=== PATIENT | male | born 1995 | race Caucasian/White ===

== ENCOUNTER 2018-03-15 10:05 | Observation (INO) ==
[2018-03-15] MEDS ORDERED: 0.9 % Sodium Chloride 1,000 ML IVC ONE (11:27)
[2018-03-15] MEDS ORDERED: Piperacillin/Tazobactam 3.375 GM in 0.9 % Sodium Chloride Mini Bag 100 ML IVPB ONE (11:27)
[2018-03-15] MEDS ORDERED: Isovue-370 500 ML INFUS..BTL IV ONE (11:27)
--- NOTE | 2018-03-15 11:35 | Emergency Department Note ---
Disposition Clinical Impression: Abscess of finger Qualifiers: Laterality: right Qualified Code(s): L02.511 - Cutaneous abscess of right hand Disposition: Admitted As Inpatient Condition: Good Referrals: Sergo Sanz MD [Primary Care Provider] - Forms: ED Satisfaction Letter Time of Disposition: 13:39 General Adult HPI - General Chief complaint: ED Skin/Abscess/Foreign Body Stated complaint: Finger injury right hand Time Seen by Provider: 03/15/18 10:45 Source: patient Limitations: no limitations Nursing Notes Reviewed: Yes Vital Signs Reviewed: Yes - History of Present Illness HPI Narrative: 22 year old male presents to the ED with complaints of right hand middle finger injury with possible honey locust thorn and 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 PAtient states that he has had honey locust thorn injureies inthe past but never this bad. Rick staets taht a few days ago he noticed that there was swelling and when you push on it pus would drain out. He tried to take care of it on his own but it only got worse. Patient denies fevers, nausea, vomitting and is not uptodate on his tetanus. Patient states that he is concnered that there is a torn in his finger, but does not recollect a thorn entering his finger. Pain Scale: 9 - Related Data Home Medications Medication Instructions Recorded Confirmed No Known Home Drugs 03/15/18 03/15/18 Allergies Allergy/AdvReac Type Severity Reaction Status Date / Time No Known Allergies Allergy Verified 03/15/18 13:43 Constitutional: Denies: fever, chills, weakness, weight change Eyes: Denies: eye pain, eye discharge, vision change ENT ED: Denies: ear pain, throat pain, dental pain, hearing loss, epistaxis, congestion, dysphagia Cardiovascular: Denies: chest pain, palpitations, dyspnea on exertion, edema, syncope Respiratory: Denies: cough, dyspnea, wheezes, hemoptysis, stridor Gastrointestinal: Denies: abdominal pain, nausea, vomiting, diarrhea, constipation, hematemesis, melena, hematochezia Genitourinary: Denies: urgency, dysuria, frequency, hematuria Musculoskeletal: Reports: other (finger abscess). Denies: back pain, neck pain , arthralgia, myalgia Integumentary: Denies: rash, abrasion, lesions Neurological: Denies: headache, weakness, numbness, paresthesias, confusion, abnormal gait, vertigo Psychiatric: Denies: anxiety, depression, suicidal thoughts, homicidal thoughts , auditory hallucinations, visual hallucinations Endocrine: Denies: fatigue Hematological/Lymphatic: Denies: easy bleeding, easy bruising Allergic/Immunologic: Denies: facial swelling, urticaria Past Medical History - Past Medical History Medical history: Reports: no medical history Psychiatric history: Reports: no psych history - Social History Smoking Status: Current some day smoker Smokeless Tobacco Status: Yes Alcohol use: Reports: occasionally Drug use: Reports: none Physical Exam - General Limitations: no limitations General appearance: alert - Head Head exam: atraumatic, normocephalic, normal inspection - Eye Eye exam: Present: normal appearance, PERRL, EOMI - Expanded Eye Exam Pupils: Bilateral: reactive - ENT ENT exam: normal exam, normal oropharynx, mucous membranes moist - Expanded ENT Exam External ear exam: Present: normal external inspection Mouth exam: Present: normal external inspection Teeth exam: Present: normal inspection Throat exam: Present: normal inspection - Neck Neck exam: Present: normal inspection, full ROM, trachea midline - Chest Chest inspection: Present: normal inspection, symmetric chest wall rise - Respiratory Respiratory exam: Present: normal lung sounds bilaterally - Cardiovascular Cardiovascular exam: Present: regular rate, normal rhythm, normal heart sounds - Abdominal Exam Abdominal exam: Present: soft, Non-Tender. Absent: tenderness, distention, guarding, rebound, rigidity - Extremities Exam Extremities exam: Present: normal inspection, full ROM. Absent: tenderness, pedal edema - Expanded Upper Extremity Exam Shoulder exam: Present: normal inspection, full ROM Arm exam: Present: normal inspection, full ROM Elbow exam: Present: normal inspection, full ROM Forearm/Wrist exam: Present: normal inspection, full ROM Hand exam: Present: normal inspection, full ROM Hand L/R back image: 1 - circumferential involvement of the joint, kannavals sign presents with range of motion, active drainage on palpation. concernign for septic joint Vascular exam: Normal: capillary refill, radial pulse - Expanded Lower Extremity Exam Hip/Pelvis exam: Present: normal inspection, full ROM Upper leg exam: Present: normal inspection, full ROM Knee exam: Present: normal inspection, full ROM Lower leg exam: Present: normal inspection, full ROM Ankle exam: Present: normal inspection, full ROM Foot/toe exam: Present: normal inspection, full ROM Neurovascular/Tendon exam: Absent: motor deficit, sensory deficit, tendon deficit - Back Exam Back exam: Present: normal inspection, full ROM. Absent: tenderness - Neurological Exam Neurological exam: Present: alert, oriented X3 - Expanded Neurological Exam Patient oriented to: Present: person, place, time Coma Scale Eye Opening: Spontaneous Coma Scale Motor Response: Obeys Commands Coma Scale Verbal Response: Oriented Coma Scale Total: 15 - Psychiatric Psychiatric exam: Present: normal affect, normal mood - Skin Skin exam: Present: warm, dry, intact, normal color Course Course Narrative: concern is for septic joint and/or deep finger abscess. Patient will likely need a hand surgeon evaluation. WEw ill start IVF and ABX and CT scan the finger and then consult the hand surgeon at [place] or have to transfer to [place]. - Reevaluation(s) Reevaluation #1: updated patient on results and he is agreeable to plan. Time: 13:39 - Consultations Consultation #1: discussed case with Dr. Carty who will take patient to the OR. Admit to medicine. Time: 13:39 Consultation #2: discussed case with Dr. Reynoso and he accepts patient for admission Time: 13:48 Vital Signs Temperature 97.8 F 03/15/18 10:07 Pulse Rate 87 03/15/18 10:07 Respiratory Rate 16 03/15/18 10:07 Blood Pressure 119/77 03/15/18 10:07 O2 Sat by Pulse Oximetry 100 03/15/18 10:07 Temperature 97.8 F 03/15/18 10:18 Pulse Rate 81 03/15/18 12:59 Respiratory Rate 18 03/15/18 12:59 Blood Pressure 124/79 03/15/18 12:59 O2 Sat by Pulse Oximetry 78 03/15/18 12:59 Oxygen Delivery Oxygen Delivery Room Air Medical Decision Making - Lab Data Result diagrams: 03/15/18 11:37 03/15/18 11:37 Lab Results 03/15/18 03/15/18 03/15/18 Range/Units 11:37 11:37 11:37 WBC 12.7 H (4.3-11.1) K/mcL RBC 4.74 (4.19-5.50) M/mcL Hgb 14.6 (12.9-16.9) g/dL Hct 42.2 (37.5-50.1) % MCV 89.0 (83.0-100.0) fL MCH 30.8 (28.0-33.3) pg MCHC 34.6 (31.6-35.5) g/dL RDW 11.8 (11.5-14.5) % Plt Count 210 (140-400) K/mcL MPV 9.7 (9.4-12.4) fL Immature Gran % 0.4 (0-4) % Seg Neutrophils % 76.9 % Lymphocytes % 14.8 % Monocytes % 7.3 % Eosinophils % 0.2 % Basophils % 0.4 % Neutrophils # 9.8 H (1.6-8.9) K/mcL Lymphocytes # 1.9 (0.6-4.6) K/mcL Monocytes # 0.9 (0.0-1.3) K/mcL Eosinophils # 0.0 (0.0-0.6) K/mcL Basophils # 0.1 (0.0-0.2) K/mcL ESR 8 (0-10) mm/hr Sodium 138 (136-145) mEq/L Potassium 4.3 (3.5-5.1) mEq/L Chloride 106 (98-107) mEq/L Carbon Dioxide 28 (23-29) mEq/L BUN 14 (6-20) mg/dL Creatinine 0.94 (0.70-1.30) mg/dL Est GFR ( Amer) > 60 (> 60) Est GFR (Non-Af Amer) > 60 (> 60) BUN/Creatinine Ratio 15 (6-26) Glucose 106 H (70-105) mg/dL Calculated Osmolality 287 (280-300) Lactic Acid (0.5-2.2) mmol/L Calcium 9.5 (8.6-10.3) mg/dL Total Bilirubin 0.6 (0.3-1.0) mg/dL AST 16 (13-39) Units/L ALT 11 (7-52) Units/L Alkaline Phosphatase 70 (34-104) Units/L C-Reactive Protein 23 H (Less than 10) mg/L Serum Total Protein 7.2 (6.4-8.9) g/dL Albumin 4.6 (3.5-5.7) g/dL Globulin 2.6 (2.4-3.5) g/dL Albumin/Globulin Ratio 1.8 (1.1-2.2) 03/15/18 Range/Units 11:37 WBC (4.3-11.1) K/mcL RBC (4.19-5.50) M/mcL Hgb (12.9-16.9) g/dL Hct (37.5-50.1) % MCV (83.0-100.0) fL MCH (28.0-33.3) pg MCHC (31.6-35.5) g/dL RDW (11.5-14.5) % Plt Count (140-400) K/mcL MPV (9.4-12.4) fL Immature Gran % (0-4) % Seg Neutrophils % % Lymphocytes % % Monocytes % % Eosinophils % % Basophils % % Neutrophils # (1.6-8.9) K/mcL Lymphocytes # (0.6-4.6) K/mcL Monocytes # (0.0-1.3) K/mcL Eosinophils # (0.0-0.6) K/mcL Basophils # (0.0-0.2) K/mcL ESR (0-10) mm/hr Sodium (136-145) mEq/L Potassium (3.5-5.1) mEq/L Chloride (98-107) mEq/L Carbon Dioxide (23-29) mEq/L BUN (6-20) mg/dL Creatinine (0.70-1.30) mg/dL Est GFR ( Amer) (> 60) Est GFR (Non-Af Amer) (> 60) BUN/Creatinine Ratio (6-26) Glucose (70-105) mg/dL Calculated Osmolality (280-300) Lactic Acid 0.8 (0.5-2.2) mmol/L Calcium (8.6-10.3) mg/dL Total Bilirubin (0.3-1.0) mg/dL AST (13-39) Units/L ALT (7-52) Units/L Alkaline Phosphatase (34-104) Units/L C-Reactive Protein (Less than 10) mg/L Serum Total Protein (6.4-8.9) g/dL Albumin (3.5-5.7) g/dL Globulin (2.4-3.5) g/dL Albumin/Globulin Ratio (1.1-2.2)
[2018-03-15] MEDS ORDERED: *HR* FentaNYL (PF) 100 MCG/2 ML VIAL IVP ONE ×2 (11:48→13:22)
[2018-03-15 11:57] LABS: Basophils # 0.1 K/mcL (0.0-0.2); Basophils % 0.4 %; Eosinophils % 0.2 %; Hematocrit 42.2 % (37.5-50.1); Hemoglobin 14.6 g/dL (12.9-16.9); Immature Granulocytes % 0.4 % (0-4); Lymphocytes # 1.9 K/mcL (0.6-4.6); Lymphocytes % 14.8 %; Mean Corpuscular HGB Conc 34.6 g/dL (31.6-35.5); Mean Corpuscular Hemoglobin 30.8 pg (28.0-33.3); Mean Platelet Volume 9.7 fL (9.4-12.4); Monocytes # 0.9 K/mcL (0.0-1.3); Monocytes % 7.3 %; Neutrophils # 9.8 K/mcL (1.6-8.9); Platelet Count 210 K/mcL (140-400); Red Blood Count 4.74 M/mcL (4.19-5.50); Red Cell Distribution Width 11.8 % (11.5-14.5); Segmented Neutrophils % 76.9 %
[2018-03-15 12:17] LABS: Alanine Aminotransferase 11 Units/L (7-52); Albumin 4.6 g/dL (3.5-5.7); Albumin/Globulin Ratio 1.8 (1.1-2.2); Alkaline Phosphatase 70 Units/L (34-104); Aspartate Amino Transferase 16 Units/L (13-39); BUN/Creatinine Ratio 15 (6-26); Bilirubin,Total 0.6 mg/dL (0.3-1.0); Blood Urea Nitrogen 14 mg/dL (6-20); C-Reactive Protein 23 mg/L (Less than 10); Calcium 9.5 mg/dL (8.6-10.3); Carbon Dioxide 28 mEq/L (23-29); Chloride 106 mEq/L (98-107); Globulin 2.6 g/dL (2.4-3.5); Glucose 106 mg/dL (70-105); Osmolality,Calculated 287 (280-300); Potassium 4.3 mEq/L (3.5-5.1); Sodium 138 mEq/L (136-145); Total Protein 7.2 g/dL (6.4-8.9); eGFR For African Americans > 60 (> 60); eGFR For Non-African Americans > 60 (> 60)
--- NOTE | 2018-03-15 15:11 | Anesthesia Evaluation PreOp ---
Date of Encounter: 03/15/18 Time of Encounter: 15:10 - Past History Planned Operation: I and D Rt 3rd Finger Cardiac History: Denies any Significant Hx Pulmonary History: Smoker [employer] EXTENSION SPECIALIST History: Denies Any Significant HX Other Medical History: Denies Any Significant HX Anesthesia History: No Prior Anesthetic Complications Alcohol Use: occasionally Drug use: none Medications and Allergies No Known Home Drugs 03/15/18 [History] 3 Allergy/AdvReac Type Severity Reaction Status Date / Time No Known Allergies Allergy Verified 03/15/18 13:43 - Meds/Allergy Pre-op Review Medications Reviewed: Yes Allergies Reviewed: Yes Beta Blockers on Current Med List: No Anesthesia Results - Labs 03/15/18 11:37 03/15/18 11:37 Anesthesia Exam O2 Sat Height 1.85 m Height 1.85 m Weight 58.423 kg Weight 58.423 kg O2 Sat by Pulse Oximetry 99 O2 Sat by Pulse Oximetry 98 O2 Sat by Pulse Oximetry 100 O2 Sat by Pulse Oximetry 100 Vital Signs Temp Pulse Resp BP Pulse Ox 97.8 F 87 16 119/77 100 03/15/18 10:07 03/15/18 10:07 03/15/18 10:07 03/15/18 10:07 03/15/18 10:07 Height: 6'1 Weight: 118 lbs Pain Scale: 5 - HEENT Pupil (Motor): Pupils equal, EOMI Mallampati: II Teeth: Normal Oral Opening: Greater than 3 - SOIL [employer]ILITY EXTENSION SPECIALIST LOC: Oriented SOIL [employer] EXTENSION SPECIALIST Motor: Normal RUE, Normal LUE, Normal RLE, Normal LLE, Normal Face [employer] EXTENSION SPECIALIST Sensory: Normal: RUE, LUE, RLE, LLE, Face - Cardiac Rhythm: Regular Murmur: None JVD: No Carotid Bruit: No - Pulmonary Breath Sounds: bilateral Clear Respiratory Effort: Symmetrical Anesthesia Assess/Plan ASA Score: 2 Modified Lindsay Scale for Level of Consciousness: Cooperative, oriented, and tranquil Anesthetic Plan: General Monitoring Plan: Standard Monitors Recovery Plan: PACU (Discussed GA, agrees to proceed)
[2018-03-15] MEDS ORDERED: *HR* Midazolam HCl 2 MG/2 ML VIAL ONE (15:22)
[2018-03-15] MEDS ORDERED: *HR* Propofol 200 MG/20 ML VIAL IVP ONE ×2 (15:22→16:38)
[2018-03-15] MEDS ORDERED: *HR* FentaNYL (PF) 100 MCG/2 ML VIAL ONE (15:22)
[2018-03-15] MEDS ORDERED: Lidocaine -MPF 2% 2 ML VIAL ONE (15:25)
[2018-03-15] MEDS ORDERED: *HR* Morphine 2 MG/ML SYRINGE IVP ONE ×2 (15:26→15:45)
[2018-03-15] MEDS ORDERED: Albuterol 2.5 MG/3 ML NEBULIZER IH ONE (15:41)
[2018-03-15] MEDS ORDERED: Famotidine 20 MG/2 ML VIAL IVP ONE (15:42)
[2018-03-15] MEDS ORDERED: Acetaminophen IV 1,000 MG/100 ML INFUS..BTL IVPB ONE (15:42)
[2018-03-15] MEDS ORDERED: Acetaminophen IV 1,000 MG/100 ML INFUS..BTL ONE (15:47)
[2018-03-15] MEDS ORDERED: Famotidine 20 MG/2 ML VIAL ONE (15:48)
[2018-03-15] MEDS ORDERED: *HR* FentaNYL (PF) 100 MCG/2 ML VIAL IVP PRN (15:58)
[2018-03-15] MEDS ORDERED: *HR* OxyCODONE Immed Rel 5 MG TABLET PO PRN (15:58)
[2018-03-15] MEDS ORDERED: *HR* Promethazine 25 MG/ML VIAL IVP PRN (15:58)
[2018-03-15] MEDS ORDERED: Bupivacaine/EPI 1:200k 0.5%PF 10 ML VIAL ONE (15:59)
[2018-03-15] MEDS ORDERED: Ondansetron 4 MG/2 ML VIAL ONE (16:00)
[2018-03-15] MEDS ORDERED: Dexamethasone 4 MG/ML VIAL ONE (16:00)
--- NOTE | 2018-03-15 16:02 | Orthopedic Consult Note ---
Date of Encounter: 03/15/18 Time of Encounter: 15:59 Assessment and Plan (1) Abscess of finger Current Visit: Yes Status: Acute I did discuss the diagnosis in detail the patient. His right long finger abscess. My recommendation was for incision, drainage, irrigation, debridement in order to clear the infection along with antibiotics per the hospitalist. The risks discussed included but were not limited to stiffness, bleeding, infection, blood clots, damage to neurovascular structures, tendons, ligaments, and bone. Also discussed was the risk of continued symptoms and possible need for further procedures. I did discuss the anesthesia risks including stroke, heart attack, and . I did discuss the reasonable, foreseeable postoperative course with the patient. He did wish to proceed and consent was obtained. Qualifiers: Laterality: right Qualified Code(s): L02.511 - Cutaneous abscess of right hand History of Present Illness HPI: Mr. Meneses is a 22 year old male who is currently admitted to the hospitalist due to a right long finger infection. He is brushing across a honeylocust tree and he thinks he may have gotten a thorn lodged into the long finger. Due to pain, redness, swelling he presented to the emergency department where he is admitted and I was consulted to assist in evaluation and management of the patient. He complains of this is an isolated occurrence and has pain localized along finger. No numbness, tingling, or any other associated signs or symptoms. Pain is worse with use and movement and better with rest. No other modifying factors. He has not had any treatment other than vancomycin and Zosyn from the emergency department. Past Med Surg Social Fam HX - Past Medical History Medical history: no medical history Psychiatric history: no psych history - Past Surgical History Additional surgical history: wisdom teeth - Social History Smoking Status: Current some day smoker Smokeless Tobacco Status: Yes Alcohol use: occasionally Drug use: none Medications and Allergies No Known Home Drugs 03/15/18 [History] 3 Allergy/AdvReac Type Severity Reaction Status Date / Time No Known Allergies Allergy Verified 03/15/18 13:43 All Systems Reviewed: Constitutional and musculoskeletal systems were reviewed and are negative unless otherwise stated in history of present illness. Physical Exam - Constitutional Vitals: Temp Pulse Resp BP Pulse Ox 97.8 F 75 16 111/85 99 03/15/18 10:18 03/15/18 15:08 03/15/18 15:08 03/15/18 15:08 03/15/18 15:08 CONSTITUTIONAL -Vitals reviewed -The patient is well developed, well nourished, well groomed PSYCHIATRIC -Fully alert and oriented -Pleasant mood RIGHT UPPER EXTREMITY Inspection shows an area of redness and swelling over the long finger proximal phalangeal region of fluctuance and induration. No drainage. It is quite tender to palpation. Less tenderness throughout the remainder of the finger. He can grossly flex and extend the digits with some limitation due to pain and swelling of the long finger. The patient can actively flex and extend all digits, extend the thumb, cross the index and long fingers, make an okay sign, and oppose the thumb. The fingertips are all grossly sensate and well-perfused , and the radial artery pulse is 2+. Diagnostic Imaging: I did personally review and interpret the CT scan of the right long finger obtained by the emergency department which does show a subcutaneous abscess in the right long finger in the area of fluctuance. Results - Labs Result Diagrams: 03/15/18 11:37 03/15/18 11:37 Labs: Abnormal lab results WBC 12.7 K/mcL (4.3-11.1) H 03/15/18 11:37 Neutrophils # 9.8 K/mcL (1.6-8.9) H 03/15/18 11:37 Glucose 106 mg/dL (70-105) H 03/15/18 11:37 C-Reactive Protein 23 mg/L (Less than 10) H 03/15/18 11:37 All other labs normal. Consult Discharge Plan - Plan Referrals: Sergo Sanz MD [Primary Care Provider] -
--- NOTE | 2018-03-15 16:47 | Orthopedic Operative Note ---
Date of procedure: 03/15/18 Procedure: OPERATIVE REPORT DATE OF PROCEDURE: 03/15/2018 SURGEON: Ferny Carty MD ROLLING MILL PLUGGER(S): There were no assistants PREOPERATIVE DIAGNOSIS: Right long finger abscess POSTOPERATIVE DIAGNOSIS: Right long finger abscess PROCEDURE: Incision, drainage, irrigation, debridement of the right long finger abscess ANESTHESIA: Gen. anesthesia PREOPERATIVE ANTIBIOTICS: Zosyn and vancomycin ESTIMATED BLOOD LOSS: 1 milliliters TOURNIQUET TIME: 10 minutes at 250 mmHg SPECIMENS: Cultures sent for aerobic and anaerobic PREOPERATIVE NOTE AND INDICATIONS: This patient is a 22-year-old male who was admitted for a right long finger infection. He is found to have an abscess. The recommendation was for incision , drainage, irrigation, and debridement. The surgical plan was discussed with the patient. The risks, benefits, alternatives, and potential complications of this procedure were discussed with the patient including injury to veins, arteries, nerves, tendons, ligaments, and bone. Also discussed were the risks of infection, bleeding, pain, blood clots, the possible need for a blood transfusion, the possible need for further procedures, heart attack, stroke, and . All of this was explained in simple terms, and the patient verbalized understanding and wished to proceed. Consent was given to proceed with surgery. PROCEDURE: The patient was seen in the preoperative holding area where the identify and the consent were confirmed. The right long finger was marked. Final questions were answered. The patient was brought back to the operating room and placed supine on the operating room table. A huddle was performed with the patient and all vital surgical team members confirming patient identity, the correct procedure, and the correct operative site. Gen. anesthesia was administered. The right upper extremity was prepped and draped in the usual sterile fashion. A surgical time out was performed immediately preceding the incision with all personnel in the operating room to confirm patient identity, the correct operative site and extremity, correct radiographic studies, availability of appropriate surgical equipment, and agreement on the planned procedure. The limb was exsanguinated and the tourniquet was inflated. A longitudinal incision was made over the dorsal and radial abscess. This did discharge grossly purulent material which was cultured. The wound was copiously irrigated. Subcutaneous necrotic fat was sharply debrided. 3 L of saline were flushed to the wound. The wound was loosely closed over a quarter-inch packing to allow for drainage. Sterile dressing was applied. Tourniquet was deflated. The instrument, sponge, and needle counts were correct after wound closure. POST OPERATIVE PLAN: Weight Bearing: Weightbearing as tolerated to the right upper extremity. DVT Prophylaxis: Ambulation Activity: Avoid aggressive activities with right upper extremity. Wound Care: Daily dressing and packing changes. Pain Control: Praful Was there an assistant housekeeping manager present: No Estimated blood loss (cc): 1
--- NOTE | 2018-03-15 17:22 | Anesthesia Evaluation Post Op ---
Date of Encounter: 03/15/18 Time of Encounter: 17:20 - Vital Signs Vital Signs: Last Vital Signs Temp 98.5 F 03/15/18 16:52 Pulse 77 03/15/18 17:12 Resp 16 03/15/18 17:12 BP 97/60 03/15/18 17:12 Pulse Ox 98 03/15/18 17:12 - Lungs Lungs: Clear Ascult./Percussion - Airway Airway: Non-obstructed - Cardiovascular Regular Rate - Mental Status Mental Status: Alert & Oriented, Answers Appropriately - Pain Pain Scale: 0 Pain Scale used: Numeric (1 - 10) - Nausea Vomiting Nausea Vomiting: Not Present - Hydration Hydration: NPO - Discharge PostOp Status: Transfer Patient to floor
[2018-03-15] MEDS ORDERED: Naloxone 0.4 MG/ML INJ IVP PRN (18:31)
[2018-03-15] MEDS ORDERED: Acetaminophen 325 MG TABLET PO PRN (18:34)
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
[2018-03-15] MEDS ORDERED: Ketorolac 30 MG/ML VIAL IM PRN ×2 (20:01→20:22)
[2018-03-15] MEDS ORDERED: *HR* OxyCODONE/APAP 5/325 TABLET PO PRN ×2 (20:01→20:22)
[2018-03-15] MEDS ORDERED: Tdap (Boostrix) Vaccine 0.5 ML SYRINGE IM ONE (20:29)
[2018-03-15] MEDS: Piperacillin/Tazobactam 3.375 GM in 0.9 % Sodium Chloride Mini Bag 100 ML IVPB SCH (21:28)
[2018-03-15] MEDS ORDERED: Tdap (ADACEL) Vaccine 0.5 ML IM ONE (21:45)
[2018-03-15] MEDS: Ketorolac 30 MG/ML VIAL IVP PRN (23:50)
[2018-03-16 04:47] LABS: Basophils % 0.2 %; Hematocrit 37.5 % (37.5-50.1); Hemoglobin 12.7 g/dL (12.9-16.9); Immature Granulocytes % 0.3 % (0-4); Lymphocytes # 0.9 K/mcL (0.6-4.6); Lymphocytes % 7.3 %; Mean Corpuscular HGB Conc 33.9 g/dL (31.6-35.5); Mean Corpuscular Hemoglobin 29.7 pg (28.0-33.3); Mean Corpuscular Volume 87.8 fL (83.0-100.0); Mean Platelet Volume 9.9 fL (9.4-12.4); Monocytes # 0.4 K/mcL (0.0-1.3); Monocytes % 3.5 %; Neutrophils # 10.7 K/mcL (1.6-8.9); Platelet Count 218 K/mcL (140-400); Red Blood Count 4.27 M/mcL (4.19-5.50); Red Cell Distribution Width 11.7 % (11.5-14.5); Segmented Neutrophils % 88.7 %
[2018-03-16 04:55] LABS: Alanine Aminotransferase 10 Units/L (7-52); Albumin/Globulin Ratio 1.7 (1.1-2.2); Alkaline Phosphatase 68 Units/L (34-104); Aspartate Amino Transferase 14 Units/L (13-39); BUN/Creatinine Ratio 15 (6-26); Bilirubin,Total 0.4 mg/dL (0.3-1.0); Blood Urea Nitrogen 13 mg/dL (6-20); Calcium 8.8 mg/dL (8.6-10.3); Carbon Dioxide 27 mEq/L (23-29); Chloride 107 mEq/L (98-107); Globulin 2.3 g/dL (2.4-3.5); Glucose 156 mg/dL (70-105); Osmolality,Calculated 287 (280-300); Potassium 4.1 mEq/L (3.5-5.1); Sodium 137 mEq/L (136-145); Total Protein 6.3 g/dL (6.4-8.9); eGFR For African Americans > 60 (> 60); eGFR For Non-African Americans > 60 (> 60)
[2018-03-16] MEDS: Piperacillin/Tazobactam 3.375 GM in 0.9 % Sodium Chloride Mini Bag 100 ML IVPB SCH (04:56)
[2018-03-16 07:06] VITALS: BP 100/57
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
--- NOTE | 2018-03-16 08:26 | Orthopedics Progress Note ---
Date of Encounter: 03/16/18 Time of Encounter: 07:00 - Assessment and Plan (1) Abscess of finger Current Visit: Yes Status: Acute I did discuss the diagnosis in detail the patient. His right long finger abscess. My recommendation was for incision, drainage, irrigation, debridement in order to clear the infection along with antibiotics per the hospitalist. The risks discussed included but were not limited to stiffness, bleeding, infection, blood clots, damage to neurovascular structures, tendons, ligaments, and bone. Also discussed was the risk of continued symptoms and possible need for further procedures. I did discuss the anesthesia risks including stroke, heart attack, and . I did discuss the reasonable, foreseeable postoperative course with the patient. He did wish to proceed and consent was obtained. Qualifiers: Laterality: right Qualified Code(s): L02.511 - Cutaneous abscess of right hand Subjective Interval history: S: The patient is resting comfortably in bed. Improved pain to the right long finger. O: Afebrile on the vital signs are stable Improved swelling to the right long finger. The packing is changed to the wound and there is no grossly purulent material. He can grossly flex and extend the digits. The fingertips are all grossly sensate and well-perfused, and the radial artery pulse is 2+. A: Incision, drainage, irrigation, debridement of the right long finger P: Doing well overall. My recommendation is for daily dressing changes and packing changes which are did teach to the patient. Discharge and oral antibiotics, likely Bactrim for coverage of MRSA. Follow-up in the office in 1 week for clinical reevaluation or sooner if needed. He will call the office sooner for any new or worsening concerns before then. In the meantime I did encourage active and passive motion exercises to reduce the risk of digital stiffness. Objective Vital signs: Vital Signs Temp Pulse Resp BP Pulse Ox 03/16/18 06:59 97.8 F 67 14 100/57 99 03/16/18 04:40 98.7 F 62 12 102/58 97 03/15/18 23:32 97.8 F 72 14 120/69 100 03/15/18 18:40 75 14 114/75 99 03/15/18 18:10 66 14 98/67 100 03/15/18 17:47 97 03/15/18 17:39 97.4 F L 63 14 95/60 97 03/15/18 17:19 98.4 F 70 16 101/62 97 03/15/18 17:12 77 16 97/60 98 03/15/18 17:02 80 16 90/58 98 03/15/18 16:52 98.5 F 82 16 94/53 97 03/15/18 15:08 75 16 111/85 99 03/15/18 14:45 18 131/89 Intake and Output 03/15/18 03/16/18 03/16/18 23:59 07:59 15:59 Intake Total 500 / 500 500 / 500 Output Total 551 / 551 350 / 350 Balance -51 / -51 150 / 150 Intake: IV Fluids 100 / 100 Zosyn 3.375 GM In 0.9 % Sodium 100 / 100 Chloride (Mini-Bag +) 100 ML @ 25 mls/hr IVPB Q8H [facility] Rx#: [id number] Oral 500 / 500 400 / 400 Output: Urine 550 / 550 350 / 350 Estimated Blood Loss Other: # Bowel Movements 0 Weight 59.591 kg 60.2 kg Patient Weight 03/16/18 23:59 Weight 60.2 kg - Labs CBC & BMP: 03/16/18 04:17 03/16/18 04:17 Labs: Abnormal lab results WBC 12.0 K/mcL (4.3-11.1) H 03/16/18 04:17 Hgb 12.7 g/dL (12.9-16.9) L D 03/16/18 04:17 Neutrophils # 10.7 K/mcL (1.6-8.9) H 03/16/18 04:17 Glucose 156 mg/dL (70-105) H 03/16/18 04:17 C-Reactive Protein 23 mg/L (Less than 10) H 03/15/18 11:37 Serum Total Protein 6.3 g/dL (6.4-8.9) L 03/16/18 04:17 Globulin 2.3 g/dL (2.4-3.5) L 03/16/18 04:17 - VTE Documentation of Mechanical Device: Intermittent pneumatic compression device Consult Discharge Plan - Plan Additional Instructions: Please complete the antibiotic Bactrim written for you. Please use the toradol as needed for pain. Please take the prilosec as written to help prevent gastric upset from the toradol. Please follow up with orthopedic surgery as already scheduled. Please return for any new or worsening symptoms. Referrals: Sergo Sanz MD [Primary Care Provider] - Prescriptions: Ketorolac [Toradol] 10 mg PO Q6HR PRN #12 tablet PRN Reason: Pain Omeprazole [PriLOSEC] 20 mg PO BIDAC #14 cap Sulfamethoxazole/Trimeth DS [Bactrim DS] 1 each PO BID #28 tablet
[2018-03-16] MEDS: Ketorolac 30 MG/ML VIAL IVP PRN (08:45)
--- NOTE | 2018-03-17 07:18 | Electrocardiograph Report ---
[address] [place], [place] [address] Test Date: 2018-03-15 Pat Name: Wilbur Meneses Department: 115 Room: 3A33 Gender: M Manager Investment: : 1995 Requested By: [id number] Order Number: [id number] Reading MD: Percy Joseph Measurements Intervals [place] Rate: 65 P: 72 NV: 173 QRS: 78 QRSD: 109 T: 54 QT: 398 QTc: 410 Interpretive Statements SINUS RHYTHM WITH SINUS ARRHYTHMIA Electronically Signed On 03-17-2018 7:16:35 EDT by Percy Joseph
== END 2018-03-16 10:25 | disposition home or self-care (01) ==
LOC: 3ANU 10:05 → EMEROO 10:05 → 3ANU 15:36
PROVIDERS: ADMIT Hospitalist; ATTEND Hospitalist